=== PATIENT | male | born 1945 | race Hispanic/Latino ===

== ENCOUNTER 2019-07-21 15:27 | Observation (INO) | payer MEDICARE ==
[~2019-07-21] VITALS: Ht 160 cm; Wt 79.8 kg
--- NOTE | 2019-07-21 16:35 | Diagnostic Imaging Report ---
Examination: Single AP view of the chest. COMPARISON: None. INDICATION: Chest pain DISCUSSION: Lines/tubes: None. Lungs: The lungs are well inflated and clear. No pneumonia or pulmonary edema. Pleura: No pleural effusion or pneumothorax. Heart and mediastinum: The heart and the mediastinum are unremarkable. Bones and soft tissues: No acute bony abnormalities. IMPRESSION: 1. No acute cardiopulmonary abnormalities. Signed by: Dr. Humphrey Montgomery M.D. on 07/21/2019 4:33 PM
[2019-07-21 16:39] LABS: BASOPHILS % 0.2 % (0.0-1.0); EOSINOPHILS % 0.5 % (0.0-6.0); HEMATOCRIT 36.3 % (38.2-49.6); HEMOGLOBIN 11.4 g/dL (14.0-18.0); LYMPHOCYTES # (AUTO) 1.6 (1.0-3.2); MEAN CORPUSCULAR HEMOGLOBIN 23.8 pg (28-32); MEAN CORPUSCULAR HGB CONC 31.4 g/dL (31-35); MEAN CORPUSCULAR VOLUME 75.9 fL (81-99); MONOCYTES # (AUTO) 0.6 (0.2-0.8); MONOCYTES % 7.2 % (4.4-11.3); NEUTROPHILS # (AUTO) 6.1 (2.1-6.9); NEUTROPHILS % 72.9 % (38.7-80.0); PLATELET COUNT 245 x10e3/uL (140-360); RED BLOOD COUNT 4.78 x10e6/uL (4.3-5.7); RED CELL DISTRIBUTION WIDTH 17.3 % (11.7-14.4)
[2019-07-21 16:46] LABS: CLARITY,URINE CLEAR (CLEAR); COLOR,URINE YELLOW (YELLOW)
[2019-07-21 16:47] LABS: BILIRUBIN,URINE NEGATIVE (NEGATIVE); KETONES,URINE NEGATIVE (NEGATIVE); LEUKOCYTE ESTERASE ,URINE NEGATIVE (NEGATIVE); NITRITE,URINE NEGATIVE (NEGATIVE); PROTEIN,URINE DIPSTICK TRACE (NEGATIVE); URINE UROBILINOGEN 0.2 mg/dL (0.2 - 1)
[2019-07-21 16:54] LABS: BACTERIA,URINE RARE /HPF; EPITHELIAL CELLS,URINE FEW /LPF; RBC,URINE 0-5 /HPF (0-5); WBC,URINE (MAN) 0-5 /HPF (0-5)
[2019-07-21 16:58] LABS: INR 0.91; PARTIAL THROMBOPLASTIN TIME 27.9 seconds (23.8-35.5); PROTHROMBIN TIME 12.8 seconds (11.9-14.5)
[2019-07-21 17:07] LABS: ALANINE AMINOTRANSFERASE 24 IU/L (0-55); ALBUMIN 4.1 g/dL (3.5-5.0); ALBUMIN/GLOBULIN RATIO 1.4 (0.8-2.0); ALKALINE PHOSPHATASE 68 IU/L (40-150); ANION GAP 15.4 mmol/L (8-16); BLOOD UREA NITROGEN 16 mg/dL (7-26); BUN/CREATININE RATIO 15 (6-25); CALCIUM 8.8 mg/dL (8.4-10.2); CARBON DIOXIDE 23 mmol/L (22-29); CHLORIDE 104 mmol/L (98-107); CREATINE KINASE 80 IU/L (30-200); CREATININE, SERUM 1.06 mg/dL (0.72-1.25); EST GLOMERULAR FILTRATION RATE > 60 ML/MIN (60-); GLUCOSE 70 mg/dL (74-118); POTASSIUM 3.4 mmol/L (3.5-5.1); SODIUM 139 mmol/L (136-145)
[2019-07-21] MEDS ORDERED: ONDANSETRON HCL INJ 2MG/ML 2ML 2 MG/ML VIAL IV PRN (17:45)
[2019-07-21] MEDS ORDERED: ASPIRIN 325 MG TAB EC PO ONE (17:45)
[2019-07-21] MEDS ORDERED: ASPIRIN 325 MG TAB ONE (17:49)
--- OUTSIDE RECORDS SUMMARY | 2019-07-21 17:49 | XMS REPORT ---
Author Author [facility] Address Unknown Phone Unavailable Care Team Providers Care [employer] Apex Developer Name Role Phone Jose Guadalupe BELLO BRANDO Unavailable Unavailable Problems This patient has no known problems. Allergies, Adverse Reactions, Alerts This patient has no known allergies or adverse reactions. Medications This patient has no known medications. Results Test Description Test Time Test Comments Text Results Atomic Results Result Comments CHEST SINGLE (PORTABLE) 2019-07-21 16:33:00 [facility] [address] [place] [address] Patient Name: EDWARD BREEN MR #: [id number] : 1945 Age/Sex: 73/M Req #: [id number] Adm Physician: Ordered by: BRANDO BELLO MD Report #: [id number] Location: ER Room/Bed: Procedure: [id number] DX/CHEST SINGLE (PORTABLE) Exam Date: 07/21/19 Exam Time: 1610 REPORT STATUS: Signed Examination: Single AP view of the chest. MIGUEL RISON: None. INDICATION: Chest pain DISCUSSION: Lines/tubes: None. Lungs: The lungs are well inflated and clear. No pneumonia or pulmonary edema. Pleura: No pleural effusion or pneumothorax. Heart and mediastinum: The heart and the mediastinum are unremarkable. Bones and soft tissues: No acute bony abnormalities. IMPRESSION: 1. No acute cardiopulmonary abnormalities. Signed by: Dr. Wayne Rodríguez M.D. on 07/21/2019 4:33 PM Dictated By: WAYNE RODRÍGUEZ MD 1633 Transcribed By: TOO on 07/21/19 1633 COPY TO: BRANDO BELLO MD
[2019-07-21] MEDS ORDERED: METOPROLOL TARTRATE INJ 1 MG/ML VIAL IV PRN (19:00)
[2019-07-21 19:54] VITALS: BP 160/80
[2019-07-21 20:00] VITALS: BP 160/80
[2019-07-21] MEDS: FAMOTIDINE 20 MG/2 ML VIAL IV SCH (21:00)
[2019-07-22] VITALS: BP 147/78
[2019-07-22 02:03] LABS: BASOPHILS % 0.5 % (0.0-1.0); EOSINOPHILS # (AUTO) 0.1 (0.0-0.4); EOSINOPHILS % 1.6 % (0.0-6.0); HEMATOCRIT 34.3 % (38.2-49.6); HEMOGLOBIN 10.6 g/dL (14.0-18.0); LYMPHOCYTES # (AUTO) 2.1 (1.0-3.2); MEAN CORPUSCULAR HEMOGLOBIN 23.8 pg (28-32); MEAN CORPUSCULAR HGB CONC 30.9 g/dL (31-35); MEAN CORPUSCULAR VOLUME 76.9 fL (81-99); MONOCYTES # (AUTO) 0.6 (0.2-0.8); MONOCYTES % 8.5 % (4.4-11.3); NEUTROPHILS # (AUTO) 4.6 (2.1-6.9); NEUTROPHILS % 61.1 % (38.7-80.0); PLATELET COUNT 229 x10e3/uL (140-360); RED BLOOD COUNT 4.46 x10e6/uL (4.3-5.7); RED CELL DISTRIBUTION WIDTH 17.3 % (11.7-14.4)
[2019-07-22 02:24] LABS: ANION GAP 15.6 mmol/L (8-16); BLOOD UREA NITROGEN 16 mg/dL (7-26); BUN/CREATININE RATIO 16 (6-25); CALCIUM 8.5 mg/dL (8.4-10.2); CARBON DIOXIDE 22 mmol/L (22-29); CHLORIDE 105 mmol/L (98-107); CHOL/HDL RATIO 2.8 (3.9-4.7); CHOLESTEROL 73 MD/DL (0-199); CREATININE, SERUM 0.98 mg/dL (0.72-1.25); EST GLOMERULAR FILTRATION RATE > 60 ML/MIN (60-); GLUCOSE 114 mg/dL (74-118); HDL CHOLESTEROL 26 MG/DL (40-60); LDL CHOLESTEROL 33 MG/DL (60-130); POTASSIUM 3.6 mmol/L (3.5-5.1); SODIUM 139 mmol/L (136-145); TRIGLYCERIDES 72 MG/DL (0-149)
[2019-07-22 02:25] LABS: CREATINE KINASE 61 IU/L (30-200)
[2019-07-22 04:00] VITALS: BP 128/61
[2019-07-22] MEDS ORDERED: DEXTROSE 50% SYRINGE 50 ML IV PRN (04:30)
--- NOTE | 2019-07-22 04:33 | NUR ---
Patient to be discharged after cardio clearance. Call [facility] with labs and echo ordered.
[2019-07-22] MEDS ORDERED: SODIUM CHLORIDE 0.9% 1000ML 1,000 ML ONE (05:30)
--- NOTE | 2019-07-22 06:45 | NUR ---
Patient daughter was reminded about the list of her father's home list medications and stated the mother will bring it this morning.
[2019-07-22] MEDS: INSULIN LISPRO 100 UNIT/1 ML 3ML VIAL SQ SCH ×2 (07:30→11:30)
[2019-07-22 07:52] VITALS: BP 128/61
[2019-07-22 08:10] VITALS: BP 140/77
[2019-07-22] MEDS: FAMOTIDINE 20 MG/2 ML VIAL IV SCH (08:37)
[2019-07-22] MEDS ORDERED: POTASSIUM CHLORIDE 20 MEQ TAB CR PO SCH (09:00)
[2019-07-22] MEDS ORDERED: ASPIRIN 81 MG ENTERIC COATED PO SCH (09:00)
[2019-07-22 10:29] LABS: CREATINE KINASE MB 0.9 ng/mL (0-5.0)
[2019-07-22] MEDS ORDERED: CLOPIDOGREL BISULFATE 75 MG TAB PO NR (11:15)
--- NOTE | 2019-07-22 11:27 | NUR ---
pt stable, have not recvd home rx list. dr shay to do stress test at this time with loading dose plavix
[2019-07-22 12:15] VITALS: BP 143/67
[2019-07-22] MEDS ORDERED: LIPITOR20 MG PO (15:20)
[2019-07-22] MEDS ORDERED: PLAVIX75 MG PO (15:20)
[2019-07-22] MEDS ORDERED: NORVASC5 MG PO (16:10)
[2019-07-22] MEDS ORDERED: HUMULIN R100 UNIT/2 SQ (16:10)
[2019-07-22] MEDS ORDERED: HYDROCHLOROTH12.5 MG PO (16:10)
[2019-07-22] MEDS ORDERED: FLOMAX0.4 MG PO (16:10)
[2019-07-22] MEDS ORDERED: LANTUS 3ML100 UNITS/ SQ (16:10)
[2019-07-22 16:15] VITALS: BP 173/73
--- NOTE | 2019-07-22 16:43 | Consultation ---
DATE OF CONSULTATION: 07/22/2019 Cardiac Consultation REASON FOR CONSULTATION: Palpitation. HISTORY OF PRESENT ILLNESS: This is a 73-year-old gentleman, who is known with hypertension and diabetes mellitus for 20 years. The patient is very poorly historian. He came because he has awakened from sleep yesterday to walk his usual morning walk and he felt palpitation and chest pressure, chest tightness. He was frightened by it and he came here to admission. After the interview, person who saw him, he did not say anything about his chest pain. However, today his daughter here. She said besides of palpitation and chest tightness, it was noted in the last few weeks, doing more than his usual activity will cause him some tightness and pressure and he feel his heart racing. Regardless, 3 sets of cardiac enzymes are negative. Cardiac consultation is obtained. I visited with the patient, who does have exertional chest pressure, chest tightness with palpitation. He denied having any orthopnea or paroxysmal nocturnal dyspnea. He does have easy fatigability and shortness of breath on exertion and chest pressure and palpitation class 3. REVIEW OF SYSTEMS: GENERAL: No fever. No chills. HEENT: No vision problem. No hearing problem. PULMONARY: No cough. No hemoptysis. CARDIAC: As per acute illness. No syncope or presyncope. GI: No hematemesis. No melena. : No hematuria. No dysuria. MUSCULOSKELETAL: No aches. No pain. ENDOCRINE: The patient is diabetic and probably is not very well controlled. HEMATOLOGY: Easy bruising, but no bleeding. SOCIAL HISTORY: The patient is . He stopped smoking 10 years ago in 2009. He is not alcohol drinker. He is retired welder pipe making. HOME MEDICATIONS: He does not know, but he knows he is taking 70 units of Lantus, NovoLog 20 units t.i.d., blood pressure medication, and prostate medication. He does not have the list. He does not know what he is taking with the exception of what mentioned above. ALLERGIES: NONE. PAST MEDICAL HISTORY: 1. Hypertension since year 1999. 2. Diabetes mellitus since year 1999. 3. Appendectomy. 4. Eyelid surgery. 5. Prostate problem. FAMILY HISTORY: Father of pneumonia. Mother doing well at age 93. Ten siblings, few of them with diabetes now with coronary artery disease. Six children, already one of his daughter with coronary artery disease. PHYSICAL EXAMINATION: VITAL SIGNS: Height of 5 feet 3 inches, weight of 176 pounds, blood pressure 140/70, heart rate of 70, respiratory rate of 18, and afebrile. HEENT: Pupils are reactive. NECK: No elevation of jugular venous pulsation. No bruit. CHEST: Clear to auscultation and percussion. HEART: PMI 5th left intercostal space. Normal first and second heart sounds. ABDOMEN: Soft with no organomegaly. No abdominal bruits. EXTREMITIES: No cyanosis. No clubbing. No edema. NEUROLOGIC: Grossly nonfocal. LABORATORY DATA: BUN of 16, creatinine of 0.98, hemoglobin of 10.6, hematocrit 34%, MCV is low at 76. Lipid profile showed triglycerides of 72, cholesterol of 73, HDL of 26, LDL of 33. EKG showing normal sinus rhythm. Three sets of cardiac enzymes are normal. IMPRESSION AND PLAN: 1. Palpitation. 2. Definite angina, very high probability of severe coronary artery disease. 3. Hypertension. 4. Diabetes mellitus. 5. Anemia, most likely it is iron deficiency anemia. MCV of 76. From a cardiac point of view, the patient will be given beta-shania, antiplatelet agent, statin, and small dose of ANNAMARIE inhibitor. He will continue his diabetic treatment. Options of workup are discussed. We will have the patient to have stress test. Differential diagnoses are discussed with the patient and his family. He needs to have also workup for his possible anemia. Questions are answered. Long visit. MD RUBIN Franks/SIOMARA /[id number]
--- NOTE | 2019-07-22 16:51 | NUR ---
home medications verified with pharmacy, [facility] DIRECTOR OF RETAIL ANALYTICS updated. reviewed dc instructions with pt and multiple family members. verbalized understanding.
[2019-07-22] MEDS ORDERED: METOPROLOL TARTRATE 25 MG TAB PO SCH (17:00)
[2019-07-22] MEDS ORDERED: ATORVASTATIN 20 MG TAB PO SCH (21:00)
--- NOTE | 2019-07-23 00:25 | Discharge Summary ---
ADMISSION DIAGNOSES: Palpitation, type 2 diabetes, hypertension, obesity with a BMI of 34.2. DISCHARGE DIAGNOSES: Palpitation, type 2 diabetes, hypertension, obesity with a BMI of 34.2, rule out acute coronary syndrome. HISTORY: Hypertension and type 2 diabetes. SURGICAL HISTORY: Appendectomy. FAMILY HISTORY: The patient's sister and daughter have diabetes. SOCIAL HISTORY: Noncontributory. The patient quit smoking 10 years ago. HOSPITAL COURSE: A 73-year-old male admits with complaints of palpitations that began yesterday. He says he felt like his heart was racing, but had a regular rhythm. He had associated shortness of breath, but he denied dizziness, chest pain, and fever. On admission, EKG showed normal sinus rhythm with PACs and another EKG showed sinus rhythm. Per telemetry monitoring, the patient was in normal sinus rhythm. TSH and lipid panel were within normal limits. An echo was done, that showed an EF of 55%. Cardiology was consulted, who did a stress test. His stress test was negative, so Cardiology cleared the patient for discharge home. He was given a new prescription for Plavix and metoprolol. He will continue his home medicines of Lipitor, hydrochlorothiazide, Norvasc, Flomax, Lantus, and Humulin R. The patient and family understand discharge instructions and agreed to plan. Vital signs stable, the patient afebrile. Dictated by Tsering Cobb NP MD AUGUSTINA Chapa/VALERIEL /[id number]
[2019-07-23] MEDS ORDERED: CLOPIDOGREL BISULFATE 75 MG TAB PO SCH (09:00)
--- NOTE | 2019-07-23 09:37 | Operative Report ---
DATE OF PROCEDURE: 07/22/2019 SURGEON: Zane Nj MD TITLE OF THE TEST: Cardiac stress test. TECHNICAL DETAILS: The protocol is Nate with 100% target heart rate at 147 per minute, 85% at 125 per minute. RESULTS: 1. The patient only exercised for 2 minute and 1 second. 2. Test stopped because achievement of target heart rate. Furthermore, the patient had severe claudication of the lower extremities. 3. Heart rate increased from 86 per minute to 151. 4. Blood pressure increased from 150/50 to 180/80. 5. No chest pain, only leg pain. 6. No EKG changes. IMPRESSION: Negative cardiac stress test with very poor exercise tolerance. Limitations are discussed and explained to the patient and his daughter. Zane Nj MD MOJ/MODL /[id number]
--- NOTE | 2019-07-23 20:50 | EXERCISE STRESS TEST ---
DATE OF STUDY: 07/22/2019 11:04:00 Stress Test - Treadmill ONLY TITLE OF THE TEST: Cardiac stress test. TECHNICAL DETAILS: The protocol is Nate with 100% target heart rate at 147 per minute, 85% at 125 per minute. RESULTS: 1. The patient only exercised for 2 minute and 1 second. 2. Test stopped because achievement of target heart rate. Furthermore, the patient had severe claudication of the lower extremities. 3. Heart rate increased from 86 per minute to 151. 4. Blood pressure increased from 150/50 to 180/80. 5. No chest pain, only leg pain. 6. No EKG changes. IMPRESSION: Negative cardiac stress test with very poor exercise tolerance. Limitations are discussed and explained to the patient and his daughter. MD RUBIN Franks/SIOMARA /[id number]
== END 2019-07-22 16:47 | disposition home or self-care (01) ==
LOC: ER 15:27 → ERHOLD 17:40 → MED/SURG 20:13
PROVIDERS: ADMIT Internal Medicine; ATTEND Internal Medicine
DX: I20.9 Angina pectoris, unspecified (principal); E11.9 Type 2 diabetes mellitus without complications; I10 Essential (primary) hypertension; D50.9 Iron deficiency anemia, unspecified; E66.9 Obesity, unspecified; Z68.34 Body mass index [BMI] 34.0-34.9, adult
CPT/HCPCS: 36415 ×2; 71045; 80048; 80053; 80061; 81001; 82550 ×2; 82553 ×2; 82948; 83036; 84443; 84484 ×2; 85025 ×2; 85379; 85610; 85730; 93005; 93017; 93306; 99284; G0378 ×2; J2405; J7030